=== PATIENT | female | born 1975 | race Two or more races ===

== ENCOUNTER 2016-10-12 13:54 | Emergency (ER) | payer OTHER ==
[2016-10-12 14:03] VITALS: TEMP 98.4; BMI 29.5
[2016-10-12] MEDS ORDERED: SODIUM CHLORIDE 1,000 ML IV STA (16:01)
--- NOTE | 2016-10-12 16:07 | PDOC ---
History of Present Illness <Annabelle Cuenca - Last Filed: 10/12/16 16:36> - General History Source: Patient Exam Limitations: No Limitations - History of Present Illness Initial Comments: 10/12/16 16:49 The patient is a 40 year old approximately 6 weeks female (A3), with a significant past medical history of 3 miscarriages, who presents to the emergency department complaining of vaginal bleeding for approximately 2 days. The patient reports she was initially experiencing brown vaginal discharge yesterday. As the day progressed she reports light spotting. However, this afternoon, patient has noted heavy bright red vaginal bleeding with clots. Patient reports associated abdominal cramping every 3-4 minutes. Patient states her last menstrual period was on 08/25/16. She reports during her last she had a miscarriage in May of 2016. Patient states she has had to have a cerclage at 12 weeks for 2 prior births. Patient denies any nausea, vomiting, diarrhea, or constipation. Patient denies any dysuria, frequency, or urgency. The patient denies any shortness of breath, lightheadedness, or dizziness Allergies: None reported. Past Surgical History: . Tummy Tuck. Social History: Non-smoker. Denies alcohol or drug use. 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 - Surgical History Abdominal Surgery: Yes ( SECTION, TUMMY TUCK) Appendectomy: No Cardiac Surgery: No Cholecystectomy: No Lung Surgery: No Neurologic Surgery: No Orthopedic Surgery: No - Reproductive History Cervical CA: No Dysfunctional Uterine Bleeding: No Ectopic : No Endometrial CA: No Polycystic Ovaries: No Spontaneous : 2 - Psycho/Social/Smoking Cessation Hx Anxiety: No Suicidal Ideation: No Smoking Status: No Smoking History: Never smoked Number of Cigarettes Smoked Daily: 0 Hx Alcohol Use: No Drug/Substance Use Hx: No Substance Use Type: None Hx Substance Use Treatment: No <Annabelle Cuenca - Last Filed: 10/12/16 16:36> <Justine Munoz - Last Filed: 10/12/16 16:51> - Past Medical History Allergies/Adverse Reactions: Allergies Allergy/AdvReac Type Severity Reaction Status Date / Time No Known Allergies Allergy Verified 10/12/16 13:59 Home Medications: Ambulatory Orders No Home Medications 0 dose .ROUTE UTDICT 09/17/13 Oxycodone HCl/Acetaminophen [Percocet 5-325 mg Tablet] 1 tab PO Q6H PRN #4 tablet MDD 4 tabs 05/26/16 Review of Systems - Review of Systems Able to Perform ROS?: Yes Comments:: 10/12/16 16:49 GENERAL/CONSTITUTIONAL: No fever or chills. No weakness. HEAD, EYES, EARS, NOSE AND THROAT: No change in vision. No ear pain or discharge. No sore throat. CARDIOVASCULAR: No chest pain or shortness of breath. RESPIRATORY: No cough, wheezing, or hemoptysis. GASTROINTESTINAL: Yes: +abdominal cramping. No nausea, vomiting, diarrhea or constipation. GENITOURINARY: Yes: +Vaginal bleeding. No dysuria, frequency, or change in urination. MUSCULOSKELETAL: No joint or muscle swelling or pain. No neck or back pain. SKIN: No rash NEUROLOGIC: No headache, vertigo, loss of consciousness, or change in strength/ sensation. ENDOCRINE: No increased thirst. No abnormal weight change. HEMATOLOGIC/LYMPHATIC: No anemia, easy bleeding, or history of blood clots. ALLERGIC/IMMUNOLOGIC: No hives or skin allergy. <Justine Munoz - Last Filed: 10/12/16 16:51> *Physical Exam - Vital Signs Last Vital Signs Temp Pulse Resp BP Pulse Ox 98.4 F 85 19 123/72 99 10/12/16 13:59 10/12/16 13:59 10/12/16 13:59 10/12/16 13:59 10/12/16 13:59 <Annabelle Cuenca - Last Filed: 10/12/16 16:36> - Vital Signs Last Vital Signs Temp Pulse Resp BP Pulse Ox 98.4 F 85 19 123/72 99 10/12/16 13:59 10/12/16 13:59 10/12/16 13:59 10/12/16 13:59 10/12/16 13:59 - Physical Exam Comments: 10/12/16 16:50 GENERAL: Awake, alert, and fully oriented, in no acute distress HEAD: No signs of trauma EYES: PERRLA, EOMI, sclera anicteric, conjunctiva clear ENT: Auricles normal inspection, hearing grossly normal, nares patent. Moist mucosa NECK: Normal ROM, supple, no lymphadenopathy, JVD, or masses LUNGS: Breath sounds equal, clear to auscultation bilaterally. No wheezes, and no crackles HEART: Regular rate and rhythm, normal S1 and S2, no murmurs, rubs or gallops ABDOMEN: LLQ and suprapubic tenderness, but no guarding or rebound. Soft, normoactive bowel sounds. No masses PELVIC: Large amount of blood with clots in the vaginal vault. Cervix is open one finger tip. EXTREMITIES: Normal range of motion, no edema. No clubbing or cyanosis. No cords, erythema, or tenderness. DP/PT pulses 2+ and symmetric. NEUROLOGICAL: Moves all extremities. Normal speech, normal gait SKIN: Warm, Dry, normal turgor, no rashes or lesions noted. <Justine Munoz - Last Filed: 10/12/16 16:51> ED Treatment Course - Medications Given in the ED: ED Medications Discontinued Medications Generic Name Dose Route Start Last Admin Trade Name Rolyq PRN Reason Stop Dose Admin Morphine Sulfate 2 mg 10/12/16 16:35 10/12/16 16:46 Morphine Injection - IVPUSH 10/12/16 16:36 2 mg ONCE ONE Administration <Justine Munoz - Last Filed: 10/12/16 16:51> Medical Decision Making - Medical Decision Making 10/12/16 16:37 40 yo F 3 miscarriages here roughly 6 weeks with vaginal bleeding. started with spotting last few days, today began heavy bleeding heavier like a period similar to prior miscarriages. usually has had to have a cerclage at 12 weeks for 2 prior births. having cramping every 3 minutes. not lightheaded. no other complaints. on exam abdomen ttp lower quadrants L >R, vaginal exam with bleeding in vault, cervix open finger tip. MDM : differential threated ab, incomplet AB , ectopic. plan tvus, rhogham. iv hydration pain control. <Annabelle Cuenca - Last Filed: 10/12/16 16:36> *DC/Admit/Observation/Transfer - Attestations Scribe Attestion: 10/12/16 16:50 Documentation prepared by Justine Munoz, acting as medical billing assistant for Annabelle Cuenca MD. <Justine Munoz - Last Filed: 10/12/16 16:51>
[2016-10-12] MEDS ORDERED: morphine CARPU-JECT 2 MG/1 ML DISP.SYRIN IVPUSH ONE (16:35)
[2016-10-12] MEDS ORDERED: morphine CARPU-JECT 2 MG/1 ML DISP.SYRIN ONE (16:41)
[2016-10-12] MEDS ORDERED: RHO(D) IMMUNE GLOBULIN 1,500 UNIT DISP.SYRIN IM ONE (16:47)
[2016-10-12 16:57] LABS: BASOPHIL 0.7 % (0-2.0); EOSINOPHIL 0.5 % (0-4.5); MCHC 32.7 g/dl (32.0-36.0); MEAN CELL VOLUME 82.4 fl (80-96); MEAN PLT VOLUME 9.2 fl (7.5-11.1); NEUTROPHILS 53.2 % (42.8-82.8); PLATELET COUNT 226 K/MM3 (134-434); RDW 12.8 % (11.6-15.6); WHITE BLOOD COUNT 7.9 K/mm3 (4.0-10.0)
[2016-10-12 17:22] LABS: INR 1.25 (0.82-1.09); PROTHROMBIN TIME (PATIENT) 13.8 SEC (9.98-11.88)
[2016-10-12 17:32] LABS: ALBUMIN 3.9 g/dl (3.4-5.0); ANION GAP 13 (8-16); CO2 25 mmol/L (21-32); CREATININE 0.7 mg/dL (0.55-1.02); GLUCOSE,RANDOM 85 mg/dL (74-106); SGOT/AST 19 U/L (15-37); SGPT/ALT 26 U/L (12-78)
[2016-10-12 17:48] LABS: ALK PHOS 63 U/L (45-117); BILIRUBIN,TOTAL 0.6 mg/dL (0.2-1.0); TOT PROT 7.2 g/dl (6.4-8.2)
--- NOTE | 2016-10-12 19:39 | PDOC ---
*Physical Exam - Vital Signs Last Vital Signs Temp Pulse Resp BP Pulse Ox 98.4 F 82 18 116/73 100 10/12/16 13:59 10/12/16 19:13 10/12/16 19:13 10/12/16 19:13 10/12/16 19:13 ED Treatment Course - LABORATORY CBC & Chemistry Diagram: 10/12/16 16:30 10/12/16 16:30 - ADDITIONAL ORDERS Additional order review: Laboratory Results 10/12/16 10/12/16 10/12/16 16:30 16:30 16:30 INR 1.25 H Sodium 142 Potassium 4.0 Chloride 104 Carbon Dioxide 25 Anion Gap 13 BUN 7 D Creatinine 0.7 D Creat Clearance w eGFR > 60 Random Glucose 85 Calcium 9.0 Total Bilirubin 0.6 D AST 19 D ALT 26 Alkaline Phosphatase 63 Total Protein 7.2 Albumin 3.9 Beta HCG, Quant 2995.1 Blood Type O NEGATIVE Antibody Screen Negative Unit Expiration Date [id number] 10/12/16 16:30 RBC 5.04 MCV 82.4 MCHC 32.7 RDW 12.8 MPV 9.2 Neutrophils % 53.2 Lymphocytes % 38.5 Monocytes % 7.1 Eosinophils % 0.5 Basophils % 0.7 - Medications Given in the ED: ED Medications Discontinued Medications Generic Name Dose Route Start Last Admin Trade Name Freq PRN Reason Stop Dose Admin Sodium Chloride 1,000 mls @ 1,000 mls/hr 10/12/16 16:01 10/12/16 16:46 Normal Saline - IV 10/12/16 17:00 1,000 mls/hr ASDIR STA Administration Morphine Sulfate 2 mg 10/12/16 16:35 10/12/16 16:46 Morphine Injection - IVPUSH 10/12/16 16:36 2 mg ONCE ONE Administration Medical Decision Making - Medical Decision Making 10/12/16 19:34 Sign-out received from outgoing Emergency Physician Dr. Cuenca Pt interviewed and examined Ancillary studies reviewed Case discussed in detail with oncoming Emergency Physician including history, physical exam and ancillary studies. Ultrasound reviewed. Demonstrates findings likely consistent with in progress. Blood type O-. Rhogam ordered by previous attending. CBC, BMP 10/12/16 16:30 10/12/16 16:30 CMP Sodium 142 mmol/L (136-145) 10/12/16 16:30 Potassium 4.0 mmol/L (3.5-5.1) 10/12/16 16:30 Chloride 104 mmol/L (98-107) 10/12/16 16:30 Carbon Dioxide 25 mmol/L (21-32) 10/12/16 16:30 Anion Gap 13 (8-16) 10/12/16 16:30 BUN 7 mg/dL (7-18) D 10/12/16 16:30 Creatinine 0.7 mg/dL (0.55-1.02) D 10/12/16 16:30 Creat Clearance w eGFR > 60 (>60) 10/12/16 16:30 Random Glucose 85 mg/dL (74-106) 10/12/16 16:30 Calcium 9.0 mg/dL (8.5-10.1) 10/12/16 16:30 Total Bilirubin 0.6 mg/dL (0.2-1.0) D 10/12/16 16:30 AST 19 U/L (15-37) D 10/12/16 16:30 ALT 26 U/L (12-78) 10/12/16 16:30 Alkaline Phosphatase 63 U/L (45-117) 10/12/16 16:30 Total Protein 7.2 g/dl (6.4-8.2) 10/12/16 16:30 Albumin 3.9 g/dl (3.4-5.0) 10/12/16 16:30 Beta HCG, Quant 2995.1 mIU/ml 10/12/16 16:30 Patient informed of the results. I advised her that this will be spontaneous. However, she has uncontrollable bleeding, patient will need to return to the ER for potential evaluation for D&C. We'll give RhoGAM prior to discharge. I discussed the physical exam findings, ancillary test results and final diagnoses with the patient. I answered all of the patient's questions. The patient was satisfied with the care received and felt comfortable with the discharge plan and treatment plan. The patient will call their primary care physician within 24 hours to arrange follow-up and will return to the Emergency Department with any new, persistant or worsening symptoms. *DC/Admit/Observation/Transfer Diagnosis at time of Disposition: Miscarriage - Discharge Dispostion Disposition: HOME Condition at time of disposition: Stable Admit: No - Prescriptions Prescriptions: Acetaminophen [Tylenol] 650 mg PO Q4H PRN #20 tablet PRN Reason: Pain - Referrals Referrals: Tammy Oshea MD [Primary Care Provider] - - Patient Instructions Printed Discharge Instructions: DI for Miscarriage Additional Instructions: You have received rhogam because you are Rh negative. Your ultrasound suggests that you are having a miscarriage. You may bleed for several days and pass a clot. However, if you have worsening bleed, please return to the ER for further evaluation. Take 650 mg tylenol every 4 hours as needed for pain. Print Language: BURKINAN - Post Discharge Activity
[2016-10-12] MEDS ORDERED: OXYCODONE/APAP 5/325MG COMBO TABLET ONE (20:15)
[2016-10-12 20:40] VITALS: BP 120/75; PULSE 79
[2016-10-12] MEDS ORDERED: OXYCODONE/APAP 5/325MG COMBO TABLET PO ONE (22:26)
== END 2016-10-12 20:40 | disposition home or self-care (01) ==
LOC: JER 13:54
PROC: 3E0234Z Introduction of Serum, Toxoid and Vaccine into Muscle, Percutaneous Approach (ICD-10-PCS; principal; 2016-10-12)
PROC: 3E0337Z Introduction of Electrolytic and Water Balance Substance into Peripheral Vein, Percutaneous Approach (ICD-10-PCS; 2016-10-12)
PROC: 3E033NZ Introduction of Analgesics, Hypnotics, Sedatives into Peripheral Vein, Percutaneous Approach (ICD-10-PCS; 2016-10-12)
DX: O02.1 Missed abortion (principal); Z3A.01 Less than 8 weeks gestation of pregnancy; O36.0910 Maternal care for other rhesus isoimmunization, first trimester, not applicable or unspecified
CPT/HCPCS: 36415; 76817-TC; 80053; 84702; 85025; 85610; 86850; 86900; 86901; 86999; 96361; 96372; 96374; 99283-25; J1561

== ENCOUNTER 2020-01-09 10:56 | Emergency (ER) | payer OTHER ==
[2020-01-09 11:06] VITALS: BMI 30.8
--- NOTE | 2020-01-09 11:15 | PDOC ---
History of Present Illness - General Chief Complaint: Allergic Reaction Stated Complaint: ALLERGIC REACTION History Source: Patient Exam Limitations: No Limitations - History of Present Illness Initial Comments: Pt is a 44 yo F, with no significant PMH, who is presenting from MRI suite for allergic reaction. Pt states she was getting an MRI for her headaches, when htye injected the contrast, and shortly after she experienced and "itchy sensation" in her throat and R side of her face. Pt states the symptoms have resolved. Pt denies any fevers/chills, headache, vision changes, syncope, throat tightness or difficulty tolerating secretions, chest pain, palpitations, SOB, nausea/vomiting, abdominal pain, urinary symptoms, diarrhea/constipation, or leg swelling. Allergies: NKDA Social: Pt denies any cigarette, alcohol, or drug use. Pt denies any recent travel or sick contacts. Surgical: no relevant history. Family: no relevant history. 01/09/20 16:07 01/09/20 17:00 Past History - Travel History Traveled outside of the country in the last 30 days: No Close contact w/someone who was outside of country & ill: No - Medical History Allergies/Adverse Reactions: Allergies Allergy/AdvReac Type Severity Reaction Status Date / Time No Known Allergies Allergy Verified 01/09/20 10:57 Home Medications: Ambulatory Orders No Home Medications 0 dose .ROUTE UTDICT 09/17/13 Acetaminophen [Tylenol] 650 mg PO Q4H PRN #20 tablet 10/12/16 Anemia: No Asthma: No Cancer: No Cardiac Disorders: No CVA: No COPD: No CHF: No Dementia: No Diabetes: No GI Disorders: No Disorders: No HTN: No Hypercholesterolemia: No Liver Disease: No Seizures: Yes (questionable) Thyroid Disease: No - Surgical History Abdominal Surgery: Yes ( SECTION, TUMMY TUCK) Appendectomy: No Cardiac Surgery: No Cholecystectomy: No Lung Surgery: No Neurologic Surgery: No Orthopedic Surgery: No - Reproductive History Is Patient Now?: No (#): 6 Para: 2 Cervical CA: No Dysfunctional Uterine Bleeding: No Ectopic : No Endometrial CA: No Polycystic Ovaries: No Therapeutic (s) & number: No Spontaneous : 2 - Psycho-Social/Smoking History Smoking Status: No Smoking History: Smoker current status UNK Have you smoked in the past 12 months: No Number of Cigarettes Smoked Daily: 0 Information on smoking cessation initiated: No - Substance Abuse Hx (Audit-C & DAST Scrn) How often the patient has a drink containing alcohol: Never Score: In Men: 4 or > Positive; In Women: 3 or > Positive: 0 Screen Result (Pos requires Nsg. Audit-10AR): Negative In the last yr the pt used illegal drug/Rx for NonMed reason: No Score: Yes response is considered Positive: 0 Screen Result (Positive result requires Nsg. DAST-10): Negative Respiratory Specific PMHX - Complaint Specific PMHX Hx Airway Support: No Hx Intubation: No Hx Asthma: No Hx Smoking Exposure: No Hx Vaping: No Hx Allergic Rhinitis: No Hx Exposure to Respiratory Irritants: No Hx Bronchitis: No Hx Pneumonia: No Hx Pulmonary Embolus: No Hx TB (Tuberculosis): No Review of Systems - Review of Systems Able to Perform ROS?: Yes Is the patient limited Bangladeshi proficient: No Constitutional: Yes: Weight Stable. No: Chills, Diaphoresis, Fever, Loss of Appetite, Malaise, Weakness HEENTM: Yes: See HPI. No: Recent change in vision, Nose Congestion, Hearing Loss, Throat Pain, Throat Swelling, Difficulty Swallowing, Mouth Swelling Respiratory: No: Cough, Orthopnea, Shortness of Breath Cardiac (ROS): No: Chest Pain, Edema, Irregular Heart Rate, Lightheadedness, Palpitations, Syncope, Chest Tightness ABD/GI: No: Constipated, Diarrhea, Nausea, Poor Appetite, Poor Fluid Intake, Vomiting, Abdominal cramping : No: Burning, Dysuria, Frequency, Flank Pain, Pain, Urgency Musculoskeletal: No: Back Pain, Muscle Pain, Muscle Weakness Integumentary: Yes: See HPI, Pruritus, Rash. No: Change in Color Neurological: No: Headache, Numbness, Weakness, Unsteady Gait, Dizziness Psychiatric: No: Sleep Pattern Change, Change in Appetite Endocrine: No: Increased Urine, Change in Weight Hematologic/Lymphatic: No: Anemia, Blood Clots, Easy Bleeding, Easy Bruising All Other Systems: Reviewed and Negative *Physical Exam - Vital Signs Last Vital Signs Temp Pulse Resp BP Pulse Ox 97.9 F 86 16 129/88 100 01/09/20 11:03 01/09/20 11:03 01/09/20 11:03 01/09/20 11:03 01/09/20 11:03 - Physical Exam Vitals stable, pt afebrile. Pt in NAD, overweight body habitus. Pt alert and oriented x3. 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 No midline spinal tenderness, step-offs, or crepitus. Head normocephalic, atraumatic. Eyes PERRLA, EOMI. Oropharynx without erythema or exudates, no LAD b/l. No nasal congestion. Hearing intact. Clear heart sounds, S1/S2, no JVD, b/l pedal edema, or heart murmur. Clear lung sounds, no respiratory distress, wheezes, crackles, or accessory muscle use. No abdominal or CVA tenderness to palpation, no rebound, no guarding. Abdomen soft, non-distended, and with normoactive bowel sounds. Single wheal with mild erythema on R external cheek. Skin otherwise without jaundice or rash. 01/09/20 17:12 Medical Decision Making - Medical Decision Making Pt was seen at bedside, also will be seen by attending Dr. Valero. Pt presenting with pruritic lesion to face, now resolving. No SOB, wheezing, diffuse skin rash, n/v/d, abdominal pain concerning for anaphylaxis. VSS and pt speaking in full sentences. Provided 25 mg IV benadryl for improvement of pruritus. Will continue to reassess pt and monitor for symptomatic improvement. Pt safe for d/c to home with PCP f/u. Pt has benadryl at home. Strict return precautions provided with pt understanding. 01/09/20 17:13 Discharge - Discharge Information Problems reviewed: Yes Clinical Impression/Diagnosis: Allergic reaction Qualifiers: Encounter type: initial encounter Qualified Code(s): T78.40XA - Allergy, unspecified, initial encounter Condition: Stable Disposition: HOME - Follow up/Referral Referrals: Carmenza Veliz NP [Primary Care Provider] - - Patient Discharge Instructions Patient Printed Discharge Instructions: DI for Adverse Drug Reaction -- Allergic Additional Instructions: You were seen in the ER for an allergic reaction, most likely to MRI contrast medication. We did an exam and gave you IV Benadryl to control your symptoms, which improved while you were here in the ER. After our assessment, we do not believe you are having a medical emergency at this time, and we believe you are safe to go home. Please take Benadryl 25 mg if you have mild recurrence of symptoms at home. Please follow up with your primary care provider in 2 days (on Saturday). Call their clinic, tell them you were seen in the ER, and tell them you need a follow-up. If you have any new or worsening symptoms, especially difficulty breathing, throat closing sensation, wheezing, nausea, vomiting, abdominal pain, headache, dizziness, lightheadedness, fainting, or numbness/tingling/weakness of one part or side of your body, please come back to the ER at any time (24 hours a day). If you are having severe or life th reatening symptoms, or symptoms that make it unsafe to drive or have someone drive you, please call 911 - Post Discharge Activity
--- NOTE | 2020-01-09 11:40 | PDOC ---
Attending Attestation - Resident Resident Name: Kayleigh Lewis - ED Attending Attestation I have performed the following: I have examined & evaluated the patient, The case was reviewed & discussed with the resident, I agree w/resident's findings & plan, Exceptions are as noted - HPI HPI: 01/09/20 11:27 44YOF with h/o migraine headaches who presents from outpatient MRI where she just had an MRI with contrast, immediately after contrast injection she had a short-lived episode of all-over body itching which has since resolved, and also one raised itchy lesion on her right cheek. She notes feeling back to normal now and has no itching, just has the residual hive on her cheek. She denies any throat closing, headache, difficulty breathing, wheezing, n/v/d/c, dizziness, lightheadedness, vertigo, n/t/w, or any other changes at any point this morning. No prior h/o allergic reactions. - Physicial Exam PE: 01/09/20 11:40 GENERAL: well-appearing, A/Ox4, no distress, answers questions appropriately, Uzbek-speaking, very pleasant, obese, accompanied by supportive significant other HEENT: PERRLA, EOMI, moist mucous membranes NECK/BACK: no midline ttp, no spinal step-off or deformity, no hematoma, full ROM, neck supple CARDIOVASCULAR: regular rate/rhythm, no MGR, strong peripheral pulses, capillary refill <2 seconds, extremities wwp, no edema LUNGS/RESPIRATORY: no respiratory distress, CTAB GI/ABDOMEN: symmetric [id number], normoactive BS, soft, no ttp, no midline pulsatile masses : no CVA tenderness MSK/EXTREMITIES: no muscle atrophy, no acute deformity SKIN: single 0.5 cm diameter urticarial lesion to right cheek, warm and dry, no pallor, no jaundice, no rash, no pathologic-appearing bruising, no skin breakdown, no cuts, no lesions NEUROLOGICAL: GCS 15, CN II-XII grossly intact, 5/5 strength proximally and distally, no facial droop - Medical Decision Making 44YOF p/w apparent mild allergic reaction to MRI contrast just after it was injected. Initial Vital Signs Temp Pulse Resp BP Pulse Ox 97.9 F 86 16 129/88 100 01/09/20 11:03 01/09/20 11:03 01/09/20 11:03 01/09/20 11:03 01/09/20 11:03 DDX IBNLT: most likely mild allergic rxn/urticaria, Patient does not have symptoms or exam consistent with angioedema or anaphylaxis. Slight possibility of contact dermatitis although there were no new soaps/detergents or lotions. Provider Orders Category Date Time Status Diphenhydramine [Benadryl Injection -] Medication 01/09/20 11:26 Discontinued 25 mg IVPUSH ONCE ONE Diphenhydramine [Benadryl Injection -] Medication 01/09/20 11:31 Discontinued 50 mg .ROUTE .STK-MED ONE Medications Discontinued Medications Generic Name Dose Route Start Last Admin Trade Name Freq PRN Reason Stop Dose Admin Diphenhydramine HCl 25 mg 01/09/20 11:26 01/09/20 11:38 Benadryl Injection - IVPUSH 01/09/20 11:27 25 mg ONCE ONE Administration Diphenhydramine HCl Confirm 01/09/20 11:31 Benadryl Injection - Administered 01/09/20 11:32 Dose 50 mg .ROUTE .STK-MED ONE This Pt has gotten significant relief of symptoms while in the ED and has been observed for an appropriate amount of time since MRI contrast exposure. On last reassessment, vitals are wnl, pain is reasonably controlled, and exam is benign. Workup is not concerning for emergency-level pathology at this time. This Pt is appropriate for discharge with close outPt follow up. They are comfortable with this plan and will follow up with PCP in 1-3 days. The Pt is instructed to also take Benadryl prn for any mild recurrence of symptoms. Specific return precautions are discussed and they will come back to the ER if necessary. Last Vital Signs Temp Pulse Resp BP Pulse Ox 97.8 F 77 16 121/71 100 01/09/20 12:07 01/09/20 12:01/09/20 12:01/09/20 12:01/09/20 12:08 Discharge - Discharge Information Problems reviewed: Yes Clinical Impression/Diagnosis: Allergic reaction Qualifiers: Encounter type: initial encounter Qualified Code(s): T78.40XA - Allergy, unspecified, initial encounter Condition: Stable Disposition: HOME - Admission No - Follow up/Referral Referrals: Carmenza Veliz NP [Primary Care Provider] - - Patient Discharge Instructions Patient Printed Discharge Instructions: DI for Adverse Drug Reaction -- Allergic Additional Instructions: You were seen in the ER for an allergic reaction, most likely to MRI contrast medication. We did an exam and gave you IV Benadryl to control your symptoms, which improved while you were here in the ER. After our assessment, we do not believe you are having a medical emergency at this time, and we believe you are safe to go home. Please take Benadryl 25 mg if you have mild recurrence of symptoms at home. Please follow up with your primary care provider in 2 days (on Saturday). Call their clinic, tell them you were seen in the ER, and tell them you need a follow-up. If you have any new or worsening symptoms, especially difficulty breathing, throat closing sensation, wheezing, nausea, vomiting, abdominal pain, headache, dizziness, lightheadedness, fainting, or numbness/tingling/weakness of one part or side of your body, please come back to the ER at any time (24 hours a day). If you are having severe or life threatening symptoms, or symptoms that make it unsafe to drive or have someone drive you, please call 911 - Post Discharge Activity
[2020-01-09 12:08] VITALS: BP 121/71; PULSE 77; TEMP 97.8
== END 2020-01-09 12:09 | disposition home or self-care (01) ==
LOC: JER 10:56
PROC: 3E033NZ Introduction of Analgesics, Hypnotics, Sedatives into Peripheral Vein, Percutaneous Approach (ICD-10-PCS; principal; 2020-01-09)
DX: T78.40XA Allergy, unspecified, initial encounter (principal)
CPT/HCPCS: 99283-25

== ENCOUNTER 2023-01-01 04:01 | Day surgery (SDC) | payer OTHER ==
[2022-12-26 15:11] VITALS: BMI 31.5
[2023-01-01] MEDS ORDERED: PROPOFOL 40 ML ONE (13:00)
[2023-01-01] MEDS ORDERED: LIDOCAINE HCL/PF 2% SDV 5ML VIAL ONE (13:01)
[2023-01-01] MEDS ORDERED: DEXAMETHASONE SOD PHOSPHATE 4 MG/1 ML VIAL ONE (13:02)
[2023-01-01] MEDS ORDERED: ONDANSETRON 4 MG/2 ML VIAL ONE (13:03)
[2023-01-01] MEDS ORDERED: SUCCINYLCHOLINE CHLORIDE 200 MG/10 ML SYRINGE ONE (13:03)
[2023-01-01] MEDS ORDERED: ePHEDrine SULFATE 50 MG/1 ML AMPULE ONE (13:04)
[2023-01-01] MEDS ORDERED: KETOROLAC TROMETHAMINE 30 MG/1 ML VIAL ONE (13:05)
[2023-01-01] MEDS ORDERED: MIDAZOLAM HCL 2 MG/2 ML SINGLE DOSE VIAL ONE (13:05)
[2023-01-01] MEDS ORDERED: ceFAZolin SODIUM 1 GM VIAL ONE (13:30)
[2023-01-01] MEDS ORDERED: ceFAZolin SODIUM 1 GM VIAL IVPB ONE (13:30)
[2023-01-01] MEDS ORDERED: oxyCODONE HCL 5 MG TABLET PO PRN (13:51)
[2023-01-01] MEDS ORDERED: ONDANSETRON 4 MG/2 ML VIAL IVPUSH PRN (13:51)
[2023-01-01] MEDS ORDERED: LACTATED RINGERS SOLUTION 1,000 ML IV SCH (14:00)
[2023-01-01 15:18] VITALS: RESP 18
[2023-01-01 15:40] VITALS: BP 120/70; PULSE 80; TEMP 97.5
== END 2023-01-01 15:35 | disposition home or self-care (01) ==
LOC: JASU-SURG 04:01
PROVIDERS: ATTEND Urology
PROC: 0TVD8ZZ Restriction of Urethra, Via Natural or Artificial Opening Endoscopic (ICD-10-PCS; principal; 2023-01-01 13:00)
DX: N39.3 Stress incontinence (female) (male) (principal)
CPT/HCPCS: 51715; L8606; 81025; 94760